=== PATIENT | female | born 2005 | race Caucasian/White ===

== ENCOUNTER 2024-04-26 03:02 | Emergency (ER) | payer SELFPAY ==
[2024-04-26] VITALS (12 sets, daily range): BP systolic 92–138; BP diastolic 52–96; PULSE 70–131; RESP 18; TEMP 36.2–36.7; O2SAT 97–100
--- NOTE | 2024-04-26 03:14 | ED.GENADULT ---
HPI - General Adult General Chief complaint: Unspecified Stated complaint: neck pain Time Seen by Provider: 04/26/24 03:12 History of Present Illness HPI narrative: Ana is a 18F that presented to the emergency department. She originally told staff that her neck hurt, however, when I went in the room she was crying. She had trouble explaining why she was here. She says I hurt all over, my neck hurts, my back hurts, I hurt on the inside and broke into further tears. She adamantly denies any fall, injury, or trauma this evening. She stated that she has been drinking, several shots and other drinks tonight, but she does this every night. She stated many times that she is terrified of her mom finding out, but not why. She says she has fleeting thoughts of hurting herself but no one else. When asked if anyone is hurting her she looks away and sad No, I guess. Lastly when asked if she has a safe place to go she said I don't know. She denied any hallucinations. Review of Systems Review of Systems: All systems reviewed & are unremarkable except as noted in HPI and below Exam Const: General: cooperative, healthy appearing, comfortable, well developed, alert, awake and Physically active Orientation/consciousness: oriented to person, oriented to place and oriented to time HENMT: Head: normal to inspection, normocephalic and atraumatic Ears: hearing grossly normal bilaterally and external ears normal Face/Nose/Sinus: Normal external nose present Eyes: General: appearance normal, both eyes and all related structures Periorbital: periorbital findings normal Sclera: sclerae normal Pupils: Equal, round and reactive pupils present Neck: Neck: normal visual inspection Other: No midline tenderness. Full active ROM throughout the cervical spine and back. Normal gait and ambulation. Chest: Chest palpation & inspection: normal inspection of the chest Resp: Effort & Inspection: normal respiratory effort, able to speak in complete sentences and no respiratory distress Auscultation: clear to auscultation bilaterally Cardio: Jugular venous distension: no JVD Rate: regular rate Rhythm: regular rhythm GI: Inspection: normal to inspection GI Palp: Yes Soft to palpation Auscultation: normal bowel sounds Skin: General skin exam: normal color and no rashes or lesions noted Neuro: General: oriented to person, oriented to place and oriented to time Cranial nerves: Yes Equal, round and reactive pupils present Extrem: General: normal to inspection Psych: Affect: Sad affect present and Anxious affect present Other: She was crying in bed. She was very anxious, and apprehensive and appeared to be holding back. Course Course Emergency Course: EKG showed sinus tachycardia at a rate of 118, normal axis, no ST elevation/depression Vital Signs Vital signs: Vital Signs Temperature 97.7 F 04/26/24 03:05 Pulse Rate 131 H 04/26/24 03:05 Respiratory Rate 18 04/26/24 03:05 Blood Pressure 138/96 H 04/26/24 03:05 Pulse Oximetry 97 04/26/24 03:05 Oxygen Delivery Room Air 04/26/24 03:05 Temperature 97.7 F 04/26/24 03:05 Pulse Rate 131 H 04/26/24 03:05 Respiratory Rate 18 04/26/24 03:05 Blood Pressure 138/96 H 04/26/24 03:05 Pulse Oximetry 97 04/26/24 03:05 Oxygen Delivery Room Air 04/26/24 03:05 Medical Decision Making Vital Signs Vital Signs: Vital Signs Temperature 97.7 F 04/26/24 03:05 Pulse Rate 131 H 04/26/24 03:05 Respiratory Rate 18 04/26/24 03:05 Blood Pressure 138/96 H 04/26/24 03:05 Pulse Oximetry 97 04/26/24 03:05 Oxygen Delivery Room Air 04/26/24 03:05 Temperature 97.7 F 04/26/24 03:05 Pulse Rate 131 H 04/26/24 03:05 Respiratory Rate 18 04/26/24 03:05 Blood Pressure 138/96 H 04/26/24 03:05 Pulse Oximetry 97 04/26/24 03:05 Oxygen Delivery Room Air 04/26/24 03:05 Discharge Plan Discharge Patient Language: Urdu Follow-up/Referrals: UNKNOWN,DOCTOR [Primary Care Provider] -
--- NOTE | 2024-04-26 03:30 | PC.NURSE ---
pt ambulated to bathroom for urine specimen
[2024-04-26 03:47] LABS: Basophils Absolute Auto 0.03 K/mm3 (0.00-0.10); Basophils Percent Auto 0.7 % (0.0-1.0); Eosinophils Absolute Auto 0.02 K/mm3 (0.02-0.50); Eosinophils Percent Auto 0.4 % (1.0-6.0); Hematocrit 45.5 % (35.0-49.0); Hemoglobin 14.8 g/dL (12.0-15.0); Immature Granulocyte Absolute 0.01 K/mm3 (0.00-0.00); Immature Granulocyte Percent A 0.2 % (0.0-0.0); Lymphocytes Absolute Auto 2.34 K/mm3 (1.10-4.50); Lymphocytes Percent Auto 51.4 % (18.0-42.0); Mean Corpuscular HGB Conc 32.5 g/dL (32-36); Mean Corpuscular Hemoglobin 29.7 pg (27.0-31.0); Mean Corpuscular Volume 91.2 fL (78.0-102.0); Mean Platelet Volume 8.8 fl (9.2-11.8); Monocytes Absolute Auto 0.39 K/mm3 (0.10-0.90); Monocytes Percent Auto 8.6 % (2.0-11.0); Neutrophils Absolute Auto 1.76 K/mm3 (1.70-7.20); Neutrophils Percent Auto 38.7 % (50.0-70.0); Platelet Count Result 268 K/mm3 (150-420); Red Blood Count 4.99 M/mm3 (4.20-5.40); Red Cell Distribution Width 12.5 % (11.6-14.4); White Blood Count 4.6 K/mm3 (4.8-10.8)
[2024-04-26] MEDS: OLANZapine 10 MG INJ VIAL IM (03:49)
[2024-04-26 03:50] LABS: Add Urine Microscopic? YES; Appearance Urine Clear (Clear); Bilirubin Urine Negative (Negative); Blood Urine 3+ (Negative); Color Urine Light Yellow (Yellow); Glucose Urine UA Negative (Negative); Ketones Urine Negative (Negative); Leukocyte Esterase Ur Negative LEU/UL (Negative); Nitrate Urine Negative (Negative); Protein Urine Negative (Negative); Specific Grav Ur <= 1.005 (1.010-1.020); Urobilinogen Urine 0.2 mg/dL (0.2-1.0); pH Urine 5.5 (5.0-8.0)
--- NOTE | 2024-04-26 03:56 | PC.NURSE ---
Patient awake and alert resting on stretcher in ED 2. Patient tells RN she is from [place] and when asked if anyone knows she is here states she is an adult and can handle it myself . Patient asked if she has any family members other than her mother and says she doesn't have family other than her mother she feels comfortable trusting. Patient asked ED staff to not let her mother know she is here stating she would be mad at her. RN medicated patient per order, see MAR. Mental health resource contacted per provider request for evaluation. Lights dimmed for comfort and call light within reach. RN monitoring.
[2024-04-26 03:58] LABS: Pregnancy On Board Control Positive; Urine Pregnancy Test Negative
[2024-04-26 04:02] LABS: Bacteria Urine None seen /hpf; Squamous Epithelial Cell Urine Occasional /hpf (Few); WBC Urine 0-3 /hpf (0-3)
[2024-04-26 04:10] LABS: Amphetamine Screen Urine Negative (Negative); Barbiturate Screen Urine Negative (Negative); Benzodiazepines Screen Urine Negative (Negative); Cannabinoid Screen Urine Negative (Negative); Cocaine Screen Urine Negative (Negative); Methadone Screen Urine Negative (Negative); Opiate Screen Urine Negative (Negative); Phencyclidine Screen Urine Negative (Negative)
[2024-04-26 04:16] LABS: Alanine Aminotransferase 29 U/L (14-59); Albumin Level 4.1 g/dL (3.4-5.0); Alkaline Phosphatase 94 U/L (46-116); Anion Gap 13 mmol/L (4-12); Aspartate Amino Transferase 21 U/L (15-37); Bilirubin,Total 0.5 mg/dL (0.00-1.00); Blood Urea Nitrogen 6 mg/dL (7-18); Calcium 8.9 mg/dL (8.5-10.1); Carbon Dioxide 30 mmol/L (21-32); Chloride 105 mmol/L (98-108); Estimated CRCL calculation 87 ml/min; Estimated Glomerular Filt Rate > 60; Glucose 113 mg/dL (70-99); Osmolality Calculated 304 mOsm/kg (285-295); Potassium 3.8 mmol/L (3.5-5.1); Sodium 148 mmol/L (136-145); Total Protein 8.1 g/dL (6.4-8.2)
[2024-04-26 04:19] LABS: Acetaminophen < 2 ug/mL (10-30); Ethanol 358 mg/dL (0-6)
--- NOTE | 2024-04-26 04:27 | PC.NURSE ---
patient checked, asleep on stretcher. RN monitoring. call light within reach.
--- NOTE | 2024-04-26 05:21 | PC.NURSE ---
patient asleep. RN monitoring.
--- NOTE | 2024-04-26 06:00 | PC.NURSE ---
patient asleep on stretcher with VSS. RN monitoring.
--- NOTE | 2024-04-26 07:20 | PC.NURSE ---
patient report given to REMY Lange for continuation of care on day shift.
--- NOTE | 2024-04-26 07:24 | PC.NURSE ---
pt is currently sleeping on stretcher in exam room at this time. blanket provided. pt arouses to verbal stimuli. pt is awaiting etoh level to come down for re-evaluation. vss per monitor. will continue to monitor.
--- NOTE | 2024-04-26 09:01 | PC.NURSE ---
no change in status, another blanket provided. pt arouses to verbal stimuli. will continue to monitor.
--- NOTE | 2024-04-26 10:35 | PC.NURSE ---
PT'S MOTHER CALLED, STATING SHE TRACKED HER PHONE AND FOUND HER HERE, WOULD LIKE TO KNOW STATUS. RN ADVISED PT WOULD HAVE TO GIVE PERMISSION TO SPEAK WITH HER AT THIS TIME AND PT WAS CURRENTLY RESTING. MOTHER STATES TO HAVE PT CALL HER IF SHE WOULD LIKE HER TO COME UP TO ER. NO CHANGE IN PT STATUS AT THIS TIME. LUNCH TRAY HAS BEEN ORDERED AND ETOH TO BE REDRAWN AT 1200. WILL CONTINUE TO MONITOR.
--- NOTE | 2024-04-26 11:22 | PC.NURSE ---
NO CHANGE IN PT STATUS. PT IS AWAITING LAB REDRAW AND LUNCH TRAY AT THIS TIME. WILL CONTINUE TO MONITOR.
--- NOTE | 2024-04-26 11:33 | PC.NURSE ---
RN WOKE PT TO EAT LUNCH, SHE IS CURRENTLY SITTING UP ON STRETCHER A&OX4 AT THIS TIME. VSS PER MONITOR. APPLE JUICE PROVIDED REQUESTED. PT HAS BEEN UPDATED ON STATUS. WILL CONTINUE TO MONITOR.
[2024-04-26 12:17] LABS: Ethanol 201 mg/dL (0-6)
--- NOTE | 2024-04-26 12:20 | PC.NURSE ---
PT AMBULATED TO RR WITH STEADY GAIT, ETOH REMAINS ELEVATED. ERP IS AWARE, AWAITING DECISION.
--- NOTE | 2024-04-26 12:38 | PC.NURSE ---
PT HAS EATEN ALL OF HER LUNCH, ADDITIONAL FLUIDS HAVE BEEN PROVIDED. PT IS A&OX4, HAS STEADY GAIT. PT HAS SPOKEN WITH MOTHER WHO IS CURRENTLY AT WORK. PT STATES SHE WILL AWAIT HER ETOH LEVEL TO REDUCE PRIOR TO DC, DOES NOT HAVE ANOTHER WAY HOME, AND SHE NEEDS HER CAR. ERP IS AWARE. VSS. NAD NOTED. PT DENIES ANY OTHER NEEDS OR COMPLAINTS. WILL CONTINUE TO MONITOR.
--- NOTE | 2024-04-26 13:28 | PC.NURSE ---
NO CHANGE IN STATUS. PT IS LYING ON STRETCHER WATCHING TV AT THIS TIME. WILL CONTINUE TO MONITOR.
[2024-04-26 15:30] LABS: Ethanol 28 mg/dL (0-6)
--- NOTE | 2024-04-26 15:40 | ED.GENADULT ---
HPI - General Adult General Chief complaint: Unspecified Stated complaint: neck pain Time Seen by Provider: 04/26/24 03:12 Related Data Allergies Allergy/AdvReac Type Severity Reaction Status Date / Time No Known Allergies Allergy Verified 04/26/24 03:48 ON LICENSE OF [facility] Social History Social History Substance use type: unknown Course Vital Signs Vital signs: Vital Signs Temperature 36.5 C 04/26/24 03:05 Pulse Rate 131 H 04/26/24 03:05 Respiratory Rate 18 04/26/24 03:05 Blood Pressure 138/96 H 04/26/24 03:05 Pulse Oximetry 97 04/26/24 03:05 Oxygen Delivery Room Air 04/26/24 03:05 Temperature 36.6 C 04/26/24 10:38 Pulse Rate 78 04/26/24 13:29 Respiratory Rate 18 04/26/24 13:29 Blood Pressure 110/70 04/26/24 13:29 Pulse Oximetry 98 04/26/24 13:29 Oxygen Delivery Room Air 04/26/24 13:29 Medical Decision Making MDM Narrative Medical decision making narrative: patient is alcohol level now 28 and she is acting normal without delirium or anxiety or depression. She is AAO x4. She has eaten without difficulty. She has gone to the bathroom on her own and walked without difficulty. We will let this patient go discharge at this time. No signs of hallucinations. Vital Signs Vital Signs: Vital Signs Temperature 36.5 C 04/26/24 03:05 Pulse Rate 131 H 04/26/24 03:05 Respiratory Rate 18 04/26/24 03:05 Blood Pressure 138/96 H 04/26/24 03:05 Pulse Oximetry 97 04/26/24 03:05 Oxygen Delivery Room Air 04/26/24 03:05 Temperature 36.6 C 04/26/24 10:38 Pulse Rate 78 04/26/24 13:29 Respiratory Rate 18 04/26/24 13:29 Blood Pressure 110/70 04/26/24 13:29 Pulse Oximetry 98 04/26/24 13:29 Oxygen Delivery Room Air 04/26/24 13:29 Lab Data 04/26/24 03:43 04/26/24 03:43 Labs: Lab Results 04/26/24 04/26/24 04/26/24 Range/Units 03:43 03:46 12:02 WBC 4.6 L (4.8-10.8) K/mm3 RBC 4.99 (4.20-5.40) M/mm3 Hgb 14.8 (12.0-15.0) g/dL Hct 45.5 (35.0-49.0) % MCV 91.2 (78.0-102.0) fL MCH 29.7 (27.0-31.0) pg MCHC 32.5 (32-36) g/dL RDW 12.5 (11.6-14.4) % Plt Count 268 (150-420) K/mm3 MPV 8.8 L (9.2-11.8) fl Immature Gran % (Auto) 0.2 H (0.0-0.0) % Neut % (Auto) 38.7 L (50.0-70.0) % Lymph % (Auto) 51.4 H (18.0-42.0) % [place] % (Auto) 8.6 (2.0-11.0) % Eos % (Auto) 0.4 L (1.0-6.0) % Baso % (Auto) 0.7 (0.0-1.0) % Lymph # (Auto) 2.34 (1.10-4.50) K/mm3 [place] # (Auto) 0.39 (0.10-0.90) K/mm3 Eos # (Auto) 0.02 (0.02-0.50) K/mm3 Baso # (Auto) 0.03 (0.00-0.10) K/mm3 Abs Immat Gran (auto) 0.01 H (0.00-0.00) K/mm3 Absolute Neuts (auto) 1.76 (1.70-7.20) K/mm3 Absolute Nucleated RBC 0.00 (0.00-0.00) K/mm3 Nucleated RBC % 0.0 (0-0.0) % Sodium 148 H (136-145) mmol/L Potassium 3.8 (3.5-5.1) mmol/L Chloride 105 (98-108) mmol/L Carbon Dioxide 30 (21-32) mmol/L Anion Gap 13 H (4-12) mmol/L BUN 6 L (7-18) mg/dL Creatinine 0.85 (0.55-1.02) mg/dL Estim Creat Clear Calc 87 ml/min Estimated GFR > 60 (59 - ) Glucose 113 H (70-99) mg/dL Calculated Osmolality 304 H (285-295) mOsm/kg Calcium 8.9 (8.5-10.1) mg/dL Total Bilirubin 0.5 (0.00-1.00) mg/dL AST 21 (15-37) U/L ALT 29 (14-59) U/L Alkaline Phosphatase 94 (46-116) U/L Total Protein 8.1 (6.4-8.2) g/dL Albumin 4.1 (3.4-5.0) g/dL TSH 1.60 (0.36-3.74) uIU/mL Urine Color Light yellow (Yellow) Urine Appearance Clear (Clear) Urine pH 5.5 (5.0-8.0) Ur Specific [place] <= 1.005 L (1.010-1.020) Urine Protein Negative (Negative) Urine Glucose (UA) Negative (Negative) Urine Ketones Negative (Negative) Ur Blood (Man) 3+ H (Negative) Urine Nitrate Negative (Negative) Urine Bilirubin Negative (Negative) Urine Urobilinogen 0.2 (0.2-1.0) mg/dL Leukocyte Esterase Rfl Negative (Negative) CHRISTOPHER/UL Urine RBC 11-20 H (0-2) /hpf Urine WBC 0-3 (0-3) /hpf Ur Squamous Epith Cells Occasional (Few) /hpf Urine Bacteria None seen (None) /hpf Urine Test Negative Salicylates 1.0 L (2.8-20.0) mg/dL Urine Opiates Screen Negative (Negative) Urine Methadone Screen Negative (Negative) Acetaminophen < 2 L (10-30) ug/mL Ur Barbiturates Screen Negative (Negative) Ur Phencyclidine Scrn Negative (Negative) Ur Amphetamine Screen Negative (Negative) U Benzodiazepines Scrn Negative (Negative) Urine Cocaine Screen Negative (Negative) U Cannabinoids Screen Negative (Negative) Ethyl Alcohol 358 H* 201 H* (0-6) mg/dL 04/26/24 Range/Units 15:15 WBC (4.8-10.8) K/mm3 RBC (4.20-5.40) M/mm3 Hgb (12.0-15.0) g/dL Hct (35.0-49.0) % MCV (78.0-102.0) fL MCH (27.0-31.0) pg MCHC (32-36) g/dL RDW (11.6-14.4) % Plt Count (150-420) K/mm3 MPV (9.2-11.8) fl Immature Gran % (Auto) (0.0-0.0) % Neut % (Auto) (50.0-70.0) % Lymph % (Auto) (18.0-42.0) % [place] % (Auto) (2.0-11.0) % Eos % (Auto) (1.0-6.0) % Baso % (Auto) (0.0-1.0) % Lymph # (Auto) (1.10-4.50) K/mm3 [place] # (Auto) (0.10-0.90) K/mm3 Eos # (Auto) (0.02-0.50) K/mm3 Baso # (Auto) (0.00-0.10) K/mm3 Abs Immat Gran (auto) (0.00-0.00) K/mm3 Absolute Neuts (auto) (1.70-7.20) K/mm3 Absolute Nucleated RBC (0.00-0.00) K/mm3 Nucleated RBC % (0-0.0) % Sodium (136-145) mmol/L Potassium (3.5-5.1) mmol/L Chloride (98-108) mmol/L Carbon Dioxide (21-32) mmol/L Anion Gap (4-12) mmol/L BUN (7-18) mg/dL Creatinine (0.55-1.02) mg/dL Estim Creat Clear Calc ml/min Estimated GFR (59 - ) Glucose (70-99) mg/dL Calculated Osmolality (285-295) mOsm/kg Calcium (8.5-10.1) mg/dL Total Bilirubin (0.00-1.00) mg/dL AST (15-37) U/L ALT (14-59) U/L Alkaline Phosphatase (46-116) U/L Total Protein (6.4-8.2) g/dL Albumin (3.4-5.0) g/dL TSH (0.36-3.74) uIU/mL Urine Color (Yellow) Urine Appearance (Clear) Urine pH (5.0-8.0) Ur Specific [place] (1.010-1.020) Urine Protein (Negative) Urine Glucose (UA) (Negative) Urine Ketones (Negative) Ur Blood (Man) (Negative) Urine Nitrate (Negative) Urine Bilirubin (Negative) Urine Urobilinogen (0.2-1.0) mg/dL Leukocyte Esterase Rfl (Negative) CHRISTOPHER/UL Urine RBC (0-2) /hpf Urine WBC (0-3) /hpf Ur Squamous Epith Cells (Few) /hpf Urine Bacteria (None) /hpf Urine Test Salicylates (2.8-20.0) mg/dL Urine Opiates Screen (Negative) Urine Methadone Screen (Negative) Acetaminophen (10-30) ug/mL Ur Barbiturates Screen (Negative) Ur Phencyclidine Scrn (Negative) Ur Amphetamine Screen (Negative) U Benzodiazepines Scrn (Negative) Urine Cocaine Screen (Negative) U Cannabinoids Screen (Negative) Ethyl Alcohol 28 H (0-6) mg/dL Discharge Plan Discharge Clinical Impression: Alcohol intoxication Qualifiers: Complication of substance-induced condition: uncomplicated Qualified Code(s): F10.920 - Alcohol use, unspecified with intoxication, uncomplicated Patient Disposition: Home, Self-Care Condition: Stable Instructions: Abuse of Alcohol (ED) Patient Language: Indonesian Follow-up/Referrals: Cristóbal Streeter MD [Physician] - UNKNOWN,DOCTOR [Primary Care Provider] - Time of Disposition: 15:39
--- NOTE | 2024-04-26 15:44 | PC.NURSE ---
pt is a&ox4, has steady gait, denies any SI or HI. pt is calm and cooperative. is awatiing discharge.
== END 2024-04-26 15:53 | disposition home or self-care (01) ==
PROVIDERS: Family Medicine; Emergency Provider Emergency Medicine
DX: F10.920 Alcohol use, unspecified with intoxication, uncomplicated (principal); M54.2 Cervicalgia
CPT/HCPCS: 36415; 80053; 80143; 80179; 80307; 81001; 81025; 82077; 84443; 85025; 93005; 96372; 99284; J2359